=== PATIENT | female | born 1950 | race Caucasian/White ===

== ENCOUNTER → 2016-05-27 | Outpatient (CLI) | payer MEDICARE, OTHER ==
[~2016-05-27] MED LIST: ACETAMINOPHEN W1 TA6 PO; AMOXICILLIN 50500 MG PO; ASPIRIN 32325 MG/TA1 PO; CALCIUM 600MG+D1 TAB PO; CALTRATE-600 W600 MG PO; CENTRUM SILVER1 TA2 PO; CIPRO 500MG TA500 MG PO; CLEOCIN HCL300 MG PO; COZAAR 50MG50 MG/TAB PO; DIVIGEL1 MG/Packe TD; ESTRACE0.1 MG/GM VG; METAMUCIL1 PDR PO; MUCINEX 60600 MG/TA1 PO; MVI; NORCO 325 MG-51 TAB PO; NYSTATIN AND TR1 CRE TP; PEPCID AC 10MG10 MG PO; PYRIDIUM 100MG100 MG PO; SYNTHROID0.075 MG/T PO; SYNTHROID0.112 MG/T PO; SYNTHROID0.125 MG/T PO; TUMS500 MG PO; TYLENOL 325MG325 MG PO; TYLENOL W/COD1 UDTAB PO; ULTRAM 50MG TAB50 MG PO
== END ==
LOC: MC.RAD 10:08
DX: Z12.31 Encounter for screening mammogram for malignant neoplasm of breast (principal)

== ENCOUNTER → 2016-05-31 | Outpatient (CLI) | payer MEDICARE, OTHER | LOC: MC.RAD 13:30 | DX: N63 Unspecified lump in breast (principal); N60.01 Solitary cyst of right breast ==

== ENCOUNTER → 2017-07-19 | Outpatient (CLI) | payer MEDICARE, OTHER | LOC: MC.RAD 10:50 | DX: Z12.31 Encounter for screening mammogram for malignant neoplasm of breast (principal); N63.10 Unspecified lump in the right breast, unspecified quadrant ==

== ENCOUNTER → 2017-07-20 | Outpatient (CLI) | payer MEDICARE, OTHER | LOC: COL.RAD 07:22 | DX: Z12.31 Encounter for screening mammogram for malignant neoplasm of breast (principal); K76.89 Other specified diseases of liver; N63.10 Unspecified lump in the right breast, unspecified quadrant; Z90.49 Acquired absence of other specified parts of digestive tract ==

== ENCOUNTER → 2017-07-21 | Outpatient (CLI) | payer MEDICARE, OTHER | LOC: MC.RAD 10:21 | DX: N60.01 Solitary cyst of right breast (principal); N63.10 Unspecified lump in the right breast, unspecified quadrant ==

== ENCOUNTER 2018-05-19 22:19 | Emergency (ER) | payer MEDICARE, OTHER ==
[~2018-05-19] VITALS: Ht 167.6 cm; Wt 95.5 kg
[2018-05-19 22:28] VITALS: TEMP 97.9
[2018-05-19 22:35] LABS: COLLECTION METHOD CLEAN CATCH
[2018-05-19 22:43] LABS: MUCOUS Present /lpf; PH 8 (5-8); SQUAMOUS EPITHELIAL 0-2 /hpf; URINE APPEARANCE Clear; URINE BACTERIA Rare /hpf; URINE BILIRUBIN Negative (NEGATIVE); URINE BLOOD 3+ (NEGATIVE); URINE COLOR Amber; URINE GLUCOSE Negative (NEGATIVE); URINE KETONE Negative (NEGATIVE); URINE LEUKOCYTE ESTERASE 2+ (NEGATIVE); URINE NITRATE Negative (NEGATIVE); URINE PROTEIN(semi-quant) 2+ (NEGATIVE); URINE UROBILINOGEN Negative (NEGATIVE)
[2018-05-19] MEDS ORDERED: LEVOXYL0.125 MG PO (23:20)
[2018-05-19] MEDS ORDERED: TYLENOL 8 HR PO (23:21)
[2018-05-19] MEDS ORDERED: FLONASEALLERGY NS (23:22)
[2018-05-19] MEDS ORDERED: ZYRTEC5 MG PO (23:22)
[2018-05-19 23:23] VITALS: BP 187/103
[2018-05-19] MEDS ORDERED: LEVAQUIN 5500 MG/TA1 PO (23:47)
[2018-05-20 00:03] VITALS: PULSE 87
== END 2018-05-20 00:04 | disposition home or self-care (01) ==
LOC: COL.ER 22:19
PROVIDERS: Nurse Practitioner
DX: N39.0 Urinary tract infection, site not specified (principal); E03.9 Hypothyroidism, unspecified; I10 Essential (primary) hypertension; Z79.51 Long term (current) use of inhaled steroids; Z90.49 Acquired absence of other specified parts of digestive tract; Z90.710 Acquired absence of both cervix and uterus

== ENCOUNTER → 2018-12-13 | Outpatient (CLI) | payer MEDICARE, OTHER ==
[~2018-12-13] MED LIST changes: +FLONASEALLERGY NS; +LEVAQUIN 5500 MG/TA1 PO; +LEVOXYL0.125 MG PO; +TYLENOL 8 HR PO; +ZYRTEC5 MG PO
== END ==
LOC: MC.RAD 09:36
DX: Z12.31 Encounter for screening mammogram for malignant neoplasm of breast (principal); N60.01 Solitary cyst of right breast

== ENCOUNTER → 2020-09-18 | Outpatient (CLI) | payer MEDICARE, OTHER | LOC: MC.RAD 08:05 | DX: Z12.31 Encounter for screening mammogram for malignant neoplasm of breast (principal); N63.20 Unspecified lump in the left breast, unspecified quadrant ==

== ENCOUNTER → 2020-09-24 | Outpatient (CLI) | payer MEDICARE, OTHER | LOC: MC.RAD 08:26 | DX: N63.23 Unspecified lump in the left breast, lower outer quadrant (principal); N63.21 Unspecified lump in the left breast, upper outer quadrant ==

== ENCOUNTER → 2020-09-30 | Outpatient (CLI) | payer MEDICARE, OTHER | LOC: MC.RAD 08:23 | DX: N60.02 Solitary cyst of left breast (principal) ==

== ENCOUNTER → 2021-04-05 | Outpatient (CLI) | payer MEDICARE, OTHER | LOC: MC.RAD 07:47 | DX: N63.20 Unspecified lump in the left breast, unspecified quadrant (principal); Z90.12 Acquired absence of left breast and nipple ==

== ENCOUNTER → 2023-03-01 | Outpatient (CLI) | payer MEDICARE | LOC: MC.RAD 07:06 | DX: Z12.31 Encounter for screening mammogram for malignant neoplasm of breast (principal) ==

== ENCOUNTER → 2023-08-21 | Outpatient (CLI) | payer MEDICARE, OTHER | LOC: COL.RAD 13:49 | DX: R10.11 Right upper quadrant pain (principal) ==

== ENCOUNTER 2024-01-01 14:00 | Outpatient (RCR) | payer MEDICARE, OTHER | END 2024-01-06 | disposition home or self-care (01) | LOC: PT.GENESIS | DX: M48.061 Spinal stenosis, lumbar region without neurogenic claudication (principal); M54.6 Pain in thoracic spine; M54.2 Cervicalgia; M25.552 Pain in left hip ==